=== PATIENT | female | born 1980 | race Caucasian/White ===

== ENCOUNTER → 2016-10-20 | Outpatient (CLI) | payer OTHER ==
[~2016-10-20] MED LIST: CIPR500T89 PO; FLAG500T PO; GASTROGRAFIN SOLUTION 30ML (Q9963) As Ordered ONE; IBUP200C PO; ISOVUE-370 76% 100ML VIAL (Q9967) As Ordered ONE; MYLI40DR PO; NORCOTAB PO; TYLE325T5 PO; no medications
--- NOTE | 2016-10-20 14:50 | REP ---
CT ABDOMEN AND PELVIS WITH IV AND ORAL CONTRAST: HISTORY: Right lower quadrant abdominal swelling, mass, and lump. Lump and incision right lower quadrant. 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 Comparison CT study, July 06, 2016. CT CONTRAST DOSE: 100 mL of Isovue-370 is administered intravenously by autoinjector. CT FINDINGS: Preliminary digital fountain attendant radiograph demonstrates a normal bowel gas pattern. Lung window settings show that the lung bases are clear. The liver and spleen are normal in size and homogeneous in texture. No adrenal lesion is seen on either side. Pancreas is unremarkable. No gallbladder abnormality is seen. The kidneys enhance symmetrically and are morphologically intact. Small and large intestinal bowel loops are normal in the abdomen. Pelvic CT images demonstrate ileocecal valve in the right pelvis. A normal appendix is seen in the right pelvis. Uterus is somewhat retroverted and unremarkable. No ovarian abnormality is seen. Bladder is empty and intact in appearance. An anastomosis is seen in the region of the sigmoid colon post left colectomy. There is some mild diverticulosis in the descending segment of the colon. No abdominal wall defect is seen. There is mild postoperative change in the periumbilical region of the midline abdomen wall. No mass lesion, adenopathy, cyst, or other abnormal fluid collection is appreciated. Bone window settings show no bony destructive lesion. There is no evidence of free intraperitoneal air. Delayed acquisition shows no filling defect in the collecting system of either kidney. Urinary bladder is unremarkable. There is a bone island in the proximal femur on the right. IMPRESSION: Status post left colon resection. Otherwise unremarkable CT study of the abdomen and pelvis with IV contrast and oral contrast. No mass, cyst, or abnormal fluid collection is seen. Signed by Cristian Louis MD 10/20/2016 07:28 P
== END ==
LOC: M RAD 12:37
PROVIDERS: ATTEND Surgery
DX: R19.03 Right lower quadrant abdominal swelling, mass and lump (principal)

== ENCOUNTER 2019-04-22 11:16 | Emergency (ER) | payer OTHER, SELFPAY ==
[~2019-04-22] VITALS: Ht 170.2 cm; Wt 153.6 kg
[~2019-04-22 11:16] MED LIST changes: +CIPR-249 PO; -CIPR500T89 PO; -GASTROGRAFIN SOLUTION 30ML (Q9963) As Ordered ONE; +HYDR-3715 PO; -IBUP200C PO; +IBUP200C25 PO; -ISOVUE-370 76% 100ML VIAL (Q9967) As Ordered ONE; -NORCOTAB PO
[2019-04-22] MEDS ORDERED: LABETALOL HCL 100 MG/20 ML VIAL IV STA (12:11)
[2019-04-22] MEDS ORDERED: MECLIZINE 25 MG TABLET PO ONE (12:15)
[2019-04-22 12:24] LABS: BASO % 0.3 % (0.0-1.0); EOS # 0.2 10^3/uL (0.0-0.50); EOS % 2.4 % (0.0-3.0); HEMATOCRIT 41.6 % (36.0-47.0); HEMOGLOBIN 13.8 g/dl (12.0-15.5); LYMPH # 2.9 10^3/uL (1.5-4.5); LYMPH % 33.2 % (24.0-44.0); MEAN CORPUSCULAR HEMOGLOBIN 30.7 pg (27.0-33.0); MEAN CORPUSCULAR HGB CONC 33.2 g/dl (32.0-36.5); MEAN CORPUSCULAR VOLUME 92.4 fl (80.0-96.0); MONO # 0.5 10^3/uL (0.0-0.8); MONO % 5.2 % (0.0-5.0); NEUTROPHILS % 58.3 % (36.0-66.0); PLATELET COUNT, AUTOMATED 305 10^3/uL (150-450); WHITE BLOOD COUNT 8.6 10^3/uL (4.0-10.0)
[2019-04-22 12:28] VITALS: BP 177/108
[2019-04-22] MEDS ORDERED: hydroCHLOROthiazide 12.5 MG CAPSULE PO ONE (12:30)
[2019-04-22] MEDS ORDERED: lisinopriL 10 MG TAB PO ONE (12:30)
--- NOTE | 2019-04-22 12:31 | REP ---
CT HEAD WITHOUT CONTRAST: HISTORY: Altered mental status. There is no intraparenchymal hemorrhage, mass, or midline shift. The ventricular system is normal in appearance. There is no extracerebral collection. There is no fracture. The visualized sinuses are clear. IMPRESSION: There is no intracranial lesion. Electronically Signed by Chauncey Guillen MD 04/22/2019 12:36 P
[2019-04-22 13:02] LABS: ALBUMIN 3.5 GM/DL (3.2-5.2); ALT/SGPT 26 U/L (12-78); BILIRUBIN,DIRECT < 0.1 MG/DL (0.0-0.2); BILIRUBIN,TOTAL 0.2 MG/DL (0.2-1.0); BLOOD UREA NITROGEN 21 MG/DL (7-18); CALCIUM LEVEL 8.7 MG/DL (8.5-10.1); CARBON DIOXIDE LEVEL 25 MEQ/L (21-32); CHLORIDE LEVEL 107 MEQ/L (98-107); CK-MB VALUE MASS 1.3 NG/ML (<3.6); CPK CREATINE PHOSPHOKINASE 153 U/L (26-192); CREATININE FOR GFR 0.74 MG/DL (0.55-1.30); GLOMERULAR FILTRATION RATE > 60.0 (>60); GLUCOSE, FASTING 123 MG/DL (70-100); MB/CK RELATIVE INDEX 0.85 (< OR =4); POTASSIUM SERUM 4.1 MEQ/L (3.5-5.1); SODIUM LEVEL 140 MEQ/L (136-145); TOTAL PROTEIN 6.7 GM/DL (6.4-8.2); TROPONIN I < 0.02 NG/ML (< 0.10)
[2019-04-22 13:07] LABS: OSMOLALITY SERUM 295 MOSM/KG (275-295)
[2019-04-22] MEDS ORDERED: MECL1TAB31 PO (13:34)
[2019-04-22] MEDS ORDERED: LISI10TA4 PO (13:34)
[2019-04-22] MEDS ORDERED: HYDR12.55 PO (13:34)
[2019-04-22 14:03] VITALS: BP 174/88
--- NOTE | 2019-04-22 19:55 | ECGEPIP ---
[facility] - ED Test Date: 2019-04-22 Pat Name: BURKE LONG Department: Room: - Gender: Female Swift Tender: NEDA : 1980 Requested By: Zakia Willoughby Order Number: [id number] Reading MD: Alejandro Petit Measurements Intervals [place] Rate: 68 P: 15 MT: 181 QRS: 24 QRSD: 88 T: 30 QT: 369 QTc: 394 Interpretive Statements SINUS RHYTHM WITH OCCASIONAL SUPRAVENTRICULAR PREMATURE COMPLEXES SIMILAR TO 08/25/16 Electronically Signed on 04-22-2019 19:55:27 EDT by Alejandro Petit
== END 2019-04-22 14:08 | disposition home or self-care (01) ==
LOC: M ED 11:16
DX: R42 Dizziness and giddiness (principal); H83.09 Labyrinthitis, unspecified ear; I10 Essential (primary) hypertension; E66.8 Other obesity

== ENCOUNTER → 2019-07-08 | Outpatient (REF) | payer SELFPAY ==
[~2019-07-08] MED LIST changes: +HYDR12.55 PO; +LISI10TA4 PO; +MECL-68 PO
[2019-07-08 17:57] LABS: CHOLESTEROL RISK RATIO 4.042 (<5)
[2019-07-08 19:59] LABS: HEMOGLOBIN A1c 5.6 %
[2019-07-11 00:10] LABS: Lyme Disease IgG/IgM Antibodie <0.91 ISR (0.00-0.90); Lyme Disease IgM Ab Quantitati <0.80 index (0.00-0.79)
== END ==
LOC: M LAB REF 16:47
PROVIDERS: ATTEND Family Medicine
DX: I10 Essential (primary) hypertension (principal); M25.50 Pain in unspecified joint; Z13.228 Encounter for screening for other metabolic disorders

== ENCOUNTER → 2021-05-09 | Outpatient (REF) | payer OTHER ==
[~2021-05-09] MED LIST changes: +LISI10TA22 PO; -LISI10TA4 PO; -MECL-68 PO; +MECL1TAB31 PO
[2021-05-09 12:38] LABS: HEMATOCRIT 42.9 % (36.0-47.0); HEMOGLOBIN 14.2 g/dl (12.0-15.5); MEAN CORPUSCULAR HEMOGLOBIN 30.4 pg (27.0-33.0); MEAN CORPUSCULAR HGB CONC 33.1 g/dl (32.0-36.5); MEAN CORPUSCULAR VOLUME 91.9 fl (80.0-96.0); PLATELET COUNT, AUTOMATED 325 10^3/uL (150-450); RED BLOOD COUNT 4.67 10^6/uL (4.00-5.40); WHITE BLOOD COUNT 9.9 10^3/uL (4.0-10.0)
[2021-05-09 13:16] LABS: ALBUMIN 3.6 GM/DL (3.2-5.2); ALT/SGPT 30 U/L (12-78); BILIRUBIN,TOTAL 0.4 MG/DL (0.2-1.0); BLOOD UREA NITROGEN 24 MG/DL (7-18); CALCIUM LEVEL 8.9 MG/DL (8.5-10.1); CARBON DIOXIDE LEVEL 27 MEQ/L (21-32); CHLORIDE LEVEL 106 MEQ/L (98-107); CHOLESTEROL LEVEL 207 MG/DL (<200); CHOLESTEROL RISK RATIO 4.404 (<5); CREATININE FOR GFR 0.67 MG/DL (0.55-1.30); FREE T4 1.01 NG/DL (0.76-1.46); GLOMERULAR FILTRATION RATE > 60.0 (>58); GLUCOSE, FASTING 99 MG/DL (70-100); HDL CHOLESTEROL 47 MG/DL (>40); LDL CHOLESTEROL 132 MG/DL (<100); NON-HDL-C 160 MG/DL; POTASSIUM SERUM 4.6 MEQ/L (3.5-5.1); SODIUM LEVEL 138 MEQ/L (136-145); TRIGLYCERIDES LEVEL 139 MG/DL (<150)
[2021-05-09 13:27] LABS: HEMOGLOBIN A1c 5.3 %
== END ==
LOC: M SFHCADAM 08:27
PROVIDERS: ATTEND Physician Assistant
DX: E28.2 Polycystic ovarian syndrome (principal); I10 Essential (primary) hypertension; E66.01 Morbid (severe) obesity due to excess calories; R10.32 Left lower quadrant pain; Z13.1 Encounter for screening for diabetes mellitus